=== PATIENT | male | born 1980 ===

== ENCOUNTER 2018-03-05 21:00 | Emergency (ER) | payer OTHER ==
[2018-03-05 21:08] VITALS: BP 139/87
--- NOTE | 2018-03-05 22:22 | UC ---
Bite Injury/Animal HPI - HPI Summary HPI Summary: 37 y/o male w c/o tick bite on abdomen, tick on < 24 hours, pt attempted to remove, unsuccesful, developed redness around area with black center. no fever , chill joint aches. - History of Current Complaint Chief Complaint: [place] Stated Complaint: TICK BITE Time Seen by Provider: 03/05/18 21:12 Hx Obtained From: Patient Severity Currently: None Severity Initially: Mild Pain Intensity: 0 Pain Scale Used: 0-10 Numeric - Allergies/Home Medications Allergies/Adverse Reactions: Allergies Allergy/AdvReac Type Severity Reaction Status Date / Time No Known Allergies Allergy Verified 03/05/18 21:08 PMH/Surg Hx/FS Hx/Imm Hx Previously Healthy: Yes - Surgical History Surgical History: None - Social History Alcohol Use: Occasionally Substance Use Type: None Smoking Status (MU): Heavy Every Day Tobacco Smoker Review of Systems Constitutional: Negative Skin: Bruising - abdomen, l side Cardiovascular: Negative Gastrointestinal: Negative Motor: Negative Neurovascular: Decreased Sensation Is Patient Immunocompromised?: No All Other Systems Reviewed And Are Negative: Yes Physical Exam Triage Information Reviewed: Yes Appearance: Well-Appearing, No Pain Distress, Well-Nourished Vital Signs: Initial Vital Signs Temp 98.9 F 03/05/18 21:06 Pulse 83 03/05/18 21:06 Resp 12 03/05/18 21:06 BP 139/87 03/05/18 21:06 Pulse Ox 99 03/05/18 21:06 Vital Signs Reviewed: Yes Neurological Exam: Normal Psychological Exam: Normal Skin: Positive: Other - small 5mm round area on L lateral abdomen, nontender, no drainage, ecchymosis around edges with dark scab in center. Area examined by Dr. Pratt, debrided gently, no bleeding noted. area pink. n odrainage Bite Injury Course/Dx - Course Course Of Treatment: tick bite, prophylaxis ABX given - Differential Dx/Diagnosis Provider Diagnoses: tick bite Discharge - Sign-Out/Discharge Documenting (check all that apply): Discharge - Discharge Plan Condition: Good Disposition: HOME Prescriptions: DOXYcycline CAP(*) [DOXYcycline 100MG CAP(*)] 200 mg PO ONCE #2 cap Patient Education Materials: Lyme Disease (ED), Tick Bite (ED) Referrals: [facility] PATTERSON [Medical Doctor] - No Primary Care Phys,NOPCP [Primary Care Provider] - Additional Instructions: - ANtibiotics as directed prophylatically - Continue to monitor site - Billing Disposition and Condition Condition: GOOD Disposition: HOME
== END 2018-03-05 21:45 | disposition home or self-care (01) ==
LOC: UCEAST 21:00
DX: S30.861A Insect bite (nonvenomous) of abdominal wall, initial encounter (principal); W57.XXXA Bitten or stung by nonvenomous insect and other nonvenomous arthropods, initial encounter; Y93.9 Activity, unspecified; Y92.9 Unspecified place or not applicable; F17.210 Nicotine dependence, cigarettes, uncomplicated
CPT/HCPCS: 10120; 99212; G0463